=== PATIENT | female | born 1980 | race Caucasian/White ===

== ENCOUNTER 2021-12-30 19:57 | Outpatient (CLI) | payer SELFPAY ==
[2022-01-01 10:06] LABS: HBs Antibody, Quant >1000.0 mIU/mL (See Note); Hepatitis B Surface Ab Positive (See Note)
[2022-01-01 12:39] LABS: Varicella IgG Antibody Positive (See Note)
[2022-01-01 15:07] LABS: TB Interpretation Negative (Negative)
== END 2021-12-30 19:58 | disposition home or self-care (01) ==
LOC: LBO 19:57
PROVIDERS: Visit Provider Nurse Practitioner Family
DX: Z02.1 Encounter for pre-employment examination (principal); Z11.59 Encounter for screening for other viral diseases; Z11.1 Encounter for screening for respiratory tuberculosis
CPT/HCPCS: 36415; 86706; 86787; 86480